=== PATIENT | male | born 1975 | race Caucasian/White ===

== ENCOUNTER 2016-11-19 07:06 | Emergency (ER) | payer BC ==
[2016-11-19 07:19] VITALS: BP 164/102; PULSE 95; RESP 18; TEMP 98.9
--- NOTE | 2016-11-19 08:05 | ED ---
General Adult HPI - General Chief complaint: Extremity Injury, Lower Stated complaint: R leg pain Time Seen by Provider: 11/19/16 07:20 Source: patient, RN notes reviewed Mode of arrival: ambulatory Limitations: no limitations - History of Present Illness Initial comments: This is a 41-year-old male who comes in with a past medical history significant for gout. Patient states his right knee often swells up when he has a gout attack. Patient states he started taking his indomethacin to help quite a bit however he ran out of his indomethacin and is here to get a refill. Patient denies any injury or trauma to the knee patient denies any strain or twist the knee. Patient denies any ankle pain or foot pain. Patient states because his been favoring that he's had a little bit of right hip pain but no injury or trauma to the right hip. Patient has not noticed any redness or warmth to the knee. - Related Data Home Medications Medication Instructions Recorded Confirmed Indocin (Unk Dose) 1 tab PO BID 11/19/16 11/19/16 Naproxen Sodium [Aleve] 440 mg PO Q8H PRN 11/19/16 11/19/16 Previous Rx's Medication Instructions Recorded Acetaminophen with Codeine 1 each PO Q4H #20 tab 11/19/16 [Tylenol w/codeine #3] Indomethacin [Indocin] 50 mg PO TID #20 capsule 11/19/16 Allergies Allergy/AdvReac Type Severity Reaction Status Date / Time No Known Allergies Allergy Verified 11/19/16 07:40 Review of Systems ROS Statement: Those systems with pertinent positive or pertinent negative responses have been documented in the HPI. ROS Other: All systems not noted in ROS Statement are negative. Past Medical History Past Medical History: Asthma Additional Past Medical History / Comment(s): gout History of Any Multi-Drug Resistant Organisms: None Reported Past Surgical History: Hernia Repair Past Psychological History: No Psychological Hx Reported Smoking Status: Never smoker Past Alcohol Use History: Rare Past Drug Use History: None Reported General Exam - General Exam Comments Initial Comments: GENERAL Patient is well-developed and well-nourished. Patient is in mild distress. EYES Patient's pupils are equal and round. Extraocular motion is intact SKIN Unremarkable NEURO The patient is alert and oriented 3 PYSCH Patient has normal interpersonal interactions. MUSCULOSKELETAL Patient's right knee is swollen there is an effusion patient states this is typical for his gout. The area is not red or warm. Limitations: no limitations Course Vital Signs 11/19/16 07:16 Temperature 98.9 F Pulse Rate 95 Respiratory 18 Rate Blood Pressure 164/102 O2 Sat by Pulse 99 Oximetry Medical Decision Making - Medical Decision Making I indicated to him that this may not be gout but he stated that the indomethacin was working well so we just as soon try that if it doesn't resolve for follow-up with his primary or orthopedics Disposition Clinical Impression: Gout of knee Disposition: HOME SELF-CARE Instructions: Gout (ED) Prescriptions: Acetaminophen with Codeine [Tylenol w/codeine #3] 1 each PO Q4H #20 tab Indomethacin [Indocin] 50 mg PO TID #20 capsule Referrals: Nonstaff,Physician [Primary Care Provider] - 1-2 days Time of Disposition: 08:03
== END 2016-11-19 08:15 | disposition home or self-care (01) ==
LOC: EC 07:06
DX: M10.9 Gout, unspecified (principal); Z79.899 Other long term (current) drug therapy
CPT/HCPCS: 99283

== ENCOUNTER 2016-12-04 21:19 | Emergency (ER) | payer BC ==
[2016-12-04 21:29] VITALS: BP 143/86; PULSE 100; RESP 18; TEMP 98.7
--- NOTE | 2016-12-04 21:50 | ED ---
General Adult HPI - General Chief complaint: Recheck/Abnormal Lab/Rx Stated complaint: med refill for gout Time Seen by Provider: 12/04/16 21:30 Source: patient, RN notes reviewed Mode of arrival: ambulatory Limitations: no limitations - History of Present Illness Initial comments: 41-year-old male presents emergency department with a chief complaint of right. Patient states his right knee is tender and Redness. He shouldn't states that he ate too much take over the weekend Patient states he has a long history of gout. Patient states he worked up for chronic sees his doctor for it. Patient states he ran out of it and indomethacin his doctor cannot see him until next week. Patient states just seems refill. The patient states specifically like his normal gout. Patient states is not currently having any other symptoms.Patient denies any recent fever, chills, shortness of breath, chest pain, back pain, abdominal pain, nausea vomiting, numbness or tingling, dysuria or hematuria, constipation or diarrhea, headaches or visual changes, or any other current symptoms. - Related Data Home Medications Medication Instructions Recorded Confirmed Indocin (Unk Dose) 1 tab PO BID 11/19/16 12/04/16 Naproxen Sodium [Aleve] 440 mg PO Q8H PRN 11/19/16 12/04/16 Previous Rx's Medication Instructions Recorded Indomethacin [Indocin] 50 mg PO TID #20 capsule 12/04/16 Allergies Allergy/AdvReac Type Severity Reaction Status Date / Time No Known Allergies Allergy Verified 12/04/16 21:29 Review of Systems ROS Statement: Those systems with pertinent positive or pertinent negative responses have been documented in the HPI. ROS Other: All systems not noted in ROS Statement are negative. Past Medical History Past Medical History: Asthma Additional Past Medical History / Comment(s): gout History of Any Multi-Drug Resistant Organisms: None Reported Past Surgical History: Hernia Repair Past Psychological History: No Psychological Hx Reported Smoking Status: Never smoker Past Alcohol Use History: Rare Past Drug Use History: None Reported General Exam - General Exam Comments Initial Comments: General: The patient is awake and alert, in no distress, and does not appear acutely ill. Neck: The neck is supple, there is no tenderness. Cardiovascular: There is a regular rate and rhythm. No murmur, rub or gallop is appreciated. Respiratory: Lungs are clear to auscultation, respirations are non-labored, breath sounds are equal. No wheezes, stridor, rales, or rhonchi. Musculoskeletal: Patient With 2+ pulses throughout right lower externa. Full range of motion of right hip right knee and right ankle. Patient does have some tenderness and redness to the right knee with full range of motion. No swelling or deformity noted. Neurological: CN II-XII intact, There are no obvious motor or sensory deficits. Coordination appears grossly intact. Speech is normal. Skin: Skin is warm and dry and no rashes or lesions are noted. Psychiatric: Normal mood and affect. Limitations: no limitations Course Vital Signs 12/04/16 21:27 Temperature 98.7 F Pulse Rate 100 Respiratory 18 Rate Blood Pressure 143/86 O2 Sat by Pulse 97 Oximetry Medical Decision Making - Medical Decision Making 41-year-old male presents for appears to be gout with the patient's history. Patient was offered blood work additional workup he states that he just needs his medications refilled. He states she'll follow-up with his doctor he does not want this. This time we will respect the patient's wishes. We will give him the prescription for refill. We did discuss return parameters and follow- up. We discussed rest. Patient stated he understood all cushions were answered. He will be discharged home. Disposition Clinical Impression: Gout of knee Disposition: HOME SELF-CARE Condition: Stable Instructions: Gout (ED) Additional Instructions: Please use medication as discussed. Please follow up with family doctor if symptoms have not improved over the next two days. Please return to the emergency room if your symptoms increase or worsen or for any other concerns. Prescriptions: Indomethacin [Indocin] 50 mg PO TID #20 capsule Referrals: Nonstaff,Physician [Primary Care Provider] - 1-2 days Layla Perdomo MD [STAFF PHYSICIAN] - 1-2 days Time of Disposition: 21:51
[2016-12-04] MEDS ORDERED: KETOROLAC 60 MG/2 ML VIAL IM STA (21:55)
== END 2016-12-04 22:01 | disposition home or self-care (01) ==
LOC: EC 21:19
DX: M10.9 Gout, unspecified (principal); Z76.0 Encounter for issue of repeat prescription; Z79.1 Long term (current) use of non-steroidal anti-inflammatories (NSAID)
CPT/HCPCS: 99281; 96372; J1885

== ENCOUNTER 2017-01-12 22:02 | Emergency (ER) | payer BC ==
--- NOTE | 2017-01-12 23:01 | ED ---
General Adult HPI - General Chief complaint: Extremity Problem,Nontraumatic Stated complaint: Knee Pain Time Seen by Provider: 01/12/17 22:27 Source: patient, family, RN notes reviewed, old records reviewed Mode of arrival: wheelchair Limitations: no limitations - History of Present Illness Initial comments: Chief complaint history of present illness a 41-year-old male here with a complaint of chronic left knee pain. In order to protect his knee walking such a way that may have caused discomfort to his left hip and lower back. Patient also reports that approximately 3 weeks ago he twisted his left knee. Patient has chronic gout. He's been emergency room several times requesting only refills of Indocin. The patient thinks this feels different than gout in the past - Related Data Home Medications Medication Instructions Recorded Confirmed Acetaminophen [Tylenol] 1,000 mg PO Q4-6H PRN 01/12/17 01/12/17 Previous Rx's Medication Instructions Recorded Allopurinol [Zyloprim] 100 mg PO BID #60 tab 01/13/17 Colchicine 0.6 mg PO BID #20 tablet 01/13/17 Indomethacin 25 mg PO TID #12 capsule 01/13/17 Allergies Allergy/AdvReac Type Severity Reaction Status Date / Time No Known Allergies Allergy Verified 01/12/17 22:10 Review of Systems ROS Statement: Those systems with pertinent positive or pertinent negative responses have been documented in the HPI. Review of systems no headache chest pain shows breath GI/ Complaints or problems. He has discomfort to his back which she states started hurting after he had to walk and different way because of his left knee pain which also affected his left hip. He has had no falls or injury to his hip or back. He reports he twisted his left knee several weeks ago and he has pain to the insertion of the lateral collateral ligament area. Mild swelling noted. All systems are reviewed. Past medical problems significant for asthma and gout. No attacks of asthma for over a year. Eventrated several times in the recent past for gout with Indocin. Surgeries for hernia repair. Patient denies ALLERGIES smokes less than 1 cigarette per day. Drinks alcohol socially. ROS Other: All systems not noted in ROS Statement are negative. Past Medical History Past Medical History: Asthma Additional Past Medical History / Comment(s): gout History of Any Multi-Drug Resistant Organisms: None Reported Past Surgical History: Hernia Repair Past Psychological History: No Psychological Hx Reported Smoking Status: Current some day smoker Past Alcohol Use History: Rare Past Drug Use History: None Reported General Exam - General Exam Comments Initial Comments: General: The patient is awake and alert, complaining of left knee pain mild swelling. Also complains of left hip left lower back area discomfort. Vital signs show temperature 99.2 pulse 105 respiratory rate 16 pulse ox 97% room air blood pressure 162/91. Patient reports he's not had hypertension in the past. Eye: Pupils are equal, round and reactive to light, extra-ocular movements are intact ; there is normal conjunctiva bilaterally. No signs of icterus. Ears, nose, mouth and throat: There are moist mucous membranes and no oral lesions. Neck: The neck is supple, there is no tenderness. Cardiovascular: There is a regular rate and rhythm. No murmur, rub or gallop is appreciated. Respiratory: Lungs are clear to auscultation, respirations are non-labored, breath sounds are equal. No wheezes, stridor, rales, or rhonchi. Gastrointestinal: No abdominal pain, no nausea no vomiting no diarrhea. Back: Mild left lower back discomfort. He thinks this is because he has to walk and in such a way to protect his painful left the he's also causing discomfort to his left hip area. No direct injury to hip or back. Musculoskeletal: Complains of pain to the left knee mild swelling, point specific pain to the insertion of the lateral collateral ligament. Examination finds pain with varus stressing. Negative drawer sign. Neurological: No gross neuro deficits. Skin: No complaints of any rash or redness. Limitations: no limitations Course Vital Signs 01/12/17 22:05 Temperature 99.2 F Pulse Rate 105 H Respiratory 16 Rate Blood Pressure 162/91 O2 Sat by Pulse 97 Oximetry Medical Decision Making - Medical Decision Making X-ray of the left knee was done and reviewed by radiologist his final impression is trying compartment osteoarthritis, moderate in the patellofemoral joint. Large joint effusion. No evidence of acute osseous abnormality. Superior patellar enthesopathy at suspected tendinosis of the distal quadriceps tendon. As read by stat rad Dr. Mccartney Uric acid elevated at 10.5. Patient be placed on colchicine one tablet twice a day for the next 4 days, Indocin 25 mg 3 times a day for the next 3 days. He'll also be prescribed allopurinol 100 mg daily and advised to follow-up with family physician for alteration of medications. Advised to apply ice to his left knee and follow-up with his family doctor. He does not have a family doctor on-call doctor today OB doctor mayra - Lab Data Lab Results 01/12/17 Range/Units 23:20 Uric Acid 10.5 H (3.5-8.5) mg/dL Disposition Clinical Impression: Gout attack, Left lateral knee pain Disposition: HOME SELF-CARE Condition: Fair Instructions: Gout (ED), Low Purine Diet (ED) Additional Instructions: Follow-up with your family doctor if you do not family doctor follow-up with Dr. David. Take colchicine 0.6 mg twice a day for the next 4 days. Take indomethacin 25 mg 3 times a day for the next 3 days. Take allopurinol 100 mg daily. Prescriptions: Allopurinol [Zyloprim] 100 mg PO BID #60 tab Colchicine 0.6 mg PO BID #20 tablet Indomethacin 25 mg PO TID #12 capsule Time of Disposition: 00:24
--- NOTE | 2017-01-12 23:15 | XR ---
LEFT KNEE, 3 views INDICATION: Left lateral knee pain COMPARISON: None FINDINGS: AP, oblique, and lateral views of the left knee are obtained. There is a large joint effusion. There is no evidence of acute fracture or malalignment. There is tricompartment osteoarthritis with marginal osteophytosis. Joint space narrowing is moderate in the patellofemoral compartment. There is a large superior patellar enthesopathy with thickening of the distal quadriceps tendon suggesting tendinosis. Soft tissues are radiographically unremarkable. IMPRESSION: 1. 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 2. Large joint effusion. 3. No evidence of acute osseous abnormality. 4. Superior patellar enthesopathy at suspected tendinosis of the distal quadriceps tendon.
[2017-01-13] MEDS ORDERED: INDOMETHACIN 25 MG CAP PO STA (00:19)
[2017-01-13 00:55] VITALS: BP 140/54; PULSE 80; RESP 20; TEMP 98
[2017-01-13] MEDS ORDERED: COLCHICINE 0.6 MG TAB PO ONE (01:00)
== END 2017-01-13 00:55 | disposition home or self-care (01) ==
LOC: EC 22:02
DX: M10.9 Gout, unspecified (principal); M17.12 Unilateral primary osteoarthritis, left knee; F17.200 Nicotine dependence, unspecified, uncomplicated
CPT/HCPCS: 36415; 84550; 99284